=== PATIENT | female | born 1965 | race Caucasian/White ===

== ENCOUNTER 2017-03-02 09:07 | Emergency (ER) | payer BC ==
[2017-03-02] MEDS ORDERED: ACETAMINOPHEN 325 MG TABLET PO ONE (11:33)
[2017-03-02] MEDS ORDERED: oxyCODONE HCL/ACETAMINOPHEN 1 TAB TABLET PO ONE (11:33)
[2017-03-02] MEDS ORDERED: ACETAMINOPHEN 325 MG TABLET ONE (11:37)
[2017-03-02] MEDS ORDERED: oxyCODONE HCL/ACETAMINOPHEN 1 TAB TABLET ONE (11:37)
--- NOTE | 2017-03-02 11:39 | ERNOTE ---
Upper Extremity HPI - Narrative Date of Service: 03/02/17 - General Extremities Pain Location: forearm: right Time Seen by Provider: 03/02/17 11:19 Source: patient, RN notes reviewed Exam Limitations: no limitations - Immun/Allergies/Home Medications Immunizations: IMMUNIZATION HX Immunizations Up to Date Yes History of Influenza Vaccine Yes Hx Pneumococcal Vaccination Yes Allergies/Adverse Reactions: Allergies Allergy/AdvReac Type Severity Reaction Status Date / Time exenatide [From Byetta] Allergy Severe Verified 03/02/17 09:34 metformin Allergy Severe Verified 03/02/17 09:34 pioglitazone HCl [From Actos] Allergy Mild Other Verified 03/02/17 09:34 Penicillins Allergy Verified 03/02/17 09:34 ORAL Allergy Uncoded 03/02/17 09:34 Home Medications: HOME MEDICATIONS FLUoxetine HCL [Prozac] 40 mg PO DAILY 04/19/12 [Last Taken Unknown] Lisdexamfetamine Dimesylate [Vyvanse] 70 mg PO DAILY 04/19/12 [Last Taken Unknown] [place]-3/Dha/Epa/Fish Oil [Fish Oil] 500 mg PO DAILY 04/19/12 [Last Taken Unknown ] Omeprazole 40 mg PO DAILY 04/19/12 [Last Taken Unknown] Pnv95/Iron Fum/Folic Acid [ Tablet] 1 each PO DAILY 04/19/12 [Last Taken Unknown] Ascorbic Acid [Vitamin C] 250 mg PO DAILY 06/28/12 [Last Taken Unknown] Zolpidem Tartrate [ZOLPIDEM (Ambien)] 10 mg PO HS PRN 11/08/13 [Last Taken Unknown] Vitamin B Complex [B Complex] 1 each PO DAILY 09/25/14 [Last Taken Unknown] Cholecalciferol (Vitamin D3) [Vitamin D] 400 unit PO DAILY 08/05/15 [Last Taken Unknown] predniSONE [Prednisone] 3 tab PO DAILY #9 tab 08/05/15 [Last Taken Unknown] oxyCODONE HCL/ACETAMINOPHEN [Percocet 5 MG/325 MG] 1 tab PO Q4H PRN #20 tab 12/10 [Last Taken Unknown] - Pain Score Pain Score #1 Pain Score: 10 - History of Present Illness Narrative: 52 year old female ambulatory to the ED for an injury to her right arm that occurred at home this morning. She fell and struck the right forearm. She is having pain in the proximal radius region. Date (Duration): 03/02/17 Occurred: this morning Location of Incident: home Method of Injury: Reports: fell Reason for Fall: Reports: tripped Loss of Consciousness: Reports: no loss of consciousness Modifying Factors - (Improves): Reports: immobilization Modifying Factors - (Worsens): Reports: movement Associated Symptoms: Reports: tingling. Denies: weakness, numbness distally, loss of feeling Other Injuries: Reports: none Review of Systems - Review of Systems Constitutional: Present: no symptoms reported EYE: Present: no symptoms reported ENT: Present: no symptoms reported Respiratory: Present: no symptoms reported Cardiology: Present: no symptoms reported Gastrointestinal/Abdominal: Present: no symptoms reported Genitourinary: Present: no symptoms reported Musculoskeletal: Present: muscle pain. Absent: joint pain, joint swelling Skin: Absent: lesions, lumps, change in color Neurological: Present: tingling. Absent: weakness, numbness Endocrine: Present: no symptoms reported Hematologic/Lymphatic: Present: no symptoms reported Psych: Present: no symptoms reported - Patient's Past Medical History Patient History - Medical: Diabetes Type 2 Patient History - Cardiac/Respiratory: No pertinent hx Patient History - Cancer: No Hx of Cancer Patient History - Surgical Procedures: Appendectomy, Cholecystectomy, Gastric Bypass, T & A, Other, Hernia Repair Patient History - Other: None LMP (females 10-50): Menopausal - Family History Mother Family History - Medical: Alzheimer's Disease, Diabetes Type 2, Hypothyroidism Family History - Cardiac/Respiratory: Hypertension Father Family History - Medical: - Social History Living Situations: home Abuse History: No History of abuse Psych History: No pertinent hx Smoking Status: Current every day smoker Have you smoked in the past 12 months: Yes Do you dip or chew tobacco: No - Immunizations Immunizations Up to Date: Yes Hx Pneumococcal Vaccination: Yes History of Influenza Vaccine: Yes Physical Exam - Physical Exam General Appearance: Present: wd/wn, alert, no apparent distress Head Exam: Present: normal inspection, no evidence of injury Respiratory: Present: no respiratory distress, normal breath sounds, no accessory muscle use, lungs clear Cardiovascular/Chest: Present: regular rate, rhythm, no murmur, normal peripheral pulses Peripheral Pulses: N=norm/S=strong/W=weak/B=bound/A=absent: Radial (R): Strong, Radial (L): Strong Extremity Exam: Present: decreased range of motion - Right elbow and wrist, bony tenderness - Right proximal radius. Absent: joint swelling, extremity edema Neurological Exam: Present: alert, oriented, no motor/sensory deficits, other - dysphoric. Absent: normal mood/affect Skin Exam: Present: normal color, warm/dry ED Progress - Vital Signs Patient's Vital Signs:: I have reviewed the patient's vital signs. Vital Signs: Vital Signs 03/02/17 09:29 Temperature 36.9 C Pulse Rate 78 Respiratory 14 Rate Blood Pressure 127/73 O2 Sat by Pulse 100 Oximetry - X-Ray X-Ray #1 X-Ray: forearm - Right Interpretation: Interp. by me X-ray Comments: Mildly displaced proximal radius fracture X-Ray #2 X-Ray: elbow - Right Interpretation: Interp. by me X-ray Comments: Mildly displaced proximal radius fracture - Progress/Reassessment Chief Complaint: Upper Extremity Injury/Problem Progress:: Improved Procedures Pre-Proc Neuro Vasc Exam: normal Hand-Made Type: ocl Splint: sugar-tong Alignment good: Yes Splint applied by: Nurse Post-Proc Neuro Vasc Exam: normal Complications: Pt soren procedure well Departure Clinical Impression: Fracture of proximal end of radius Qualifiers: Encounter type: initial encounter Fracture type: closed Fracture morphology: unspecified fracture morphology Laterality: right Qualified Code(s): S52.101A - Unspecified fracture of upper end of right radius, initial encounter for closed fracture - Departure Disposition: Home Follow Up Needed Condition: Stable Instructions: Radial Fracture, Form - Excuse from Work, School, or Physical Activity Additional Instructions: Ice and elevate Leave splint in place until seen by orthopedics OK to take Tylenol for mild pain if you are not taking Percocet Contact orthopedics on Saturday to arrange follow-up Referrals: Artemio Cardoza, PAC [[facility]] - Prescriptions: oxyCODONE HCL/ACETAMINOPHEN [Percocet 5 MG/325 MG] 1 tab PO Q4H PRN #20 tab PRN Reason: Pain
[2017-03-02 11:52] VITALS: BP 135/70
== END 2017-03-02 12:14 | disposition home or self-care (01) ==
LOC: ER 09:07
PROC: 2W3CX1Z Immobilization of Right Lower Arm using Splint (ICD-10-PCS; principal; 2017-03-02)
DX: S52.101A Unspecified fracture of upper end of right radius, initial encounter for closed fracture (principal); W01.10XA Fall on same level from slipping, tripping and stumbling with subsequent striking against unspecified object, initial encounter; Y93.9 Activity, unspecified; Y92.009 Unspecified place in unspecified non-institutional (private) residence as the place of occurrence of the external cause; F17.200 Nicotine dependence, unspecified, uncomplicated

== ENCOUNTER 2017-06-27 20:05 | Emergency (ER) | payer BC ==
--- NOTE | 2017-06-27 20:54 | ERNOTE ---
Integumentary HPI - Narrative Date of Service: 06/27/17 - General Presenting Symptoms: other - lump and pain LLE Time Seen by Provider: 06/27/17 20:37 Source: patient Exam Limitations: no limitations - Immun/Allergies/Home Medications Immunizations: IMMUNIZATION HX Immunizations Up to Date Yes History of Influenza Vaccine Yes Hx Pneumococcal Vaccination No Allergies/Adverse Reactions: Allergies Allergy/AdvReac Type Severity Reaction Status Date / Time exenatide [From Byetta] Allergy Severe Verified 06/27/17 20:22 metformin Allergy Severe Verified 06/27/17 20:22 pioglitazone HCl [From Actos] Allergy Mild Other Verified 06/27/17 20:22 Penicillins Allergy Verified 06/27/17 20:22 ORAL Allergy Uncoded 06/27/17 20:22 Home Medications: HOME MEDICATIONS FLUoxetine HCL [Prozac] 40 mg PO DAILY 04/19/12 [Last Taken Unknown] Lisdexamfetamine Dimesylate [Vyvanse] 70 mg PO DAILY 04/19/12 [Last Taken Unknown] [place]-3/Dha/Epa/Fish Oil [Fish Oil] 500 mg PO DAILY 04/19/12 [Last Taken Unknown ] Omeprazole 40 mg PO DAILY 04/19/12 [Last Taken Unknown] Pnv95/Iron Fum/Folic Acid [ Tablet] 1 each PO DAILY 04/19/12 [Last Taken Unknown] Ascorbic Acid [Vitamin C] 250 mg PO DAILY 06/28/12 [Last Taken Unknown] Zolpidem Tartrate [ZOLPIDEM (Ambien)] 10 mg PO HS PRN 11/08/13 [Last Taken Unknown] Vitamin B Complex [B Complex] 1 each PO DAILY 09/25/14 [Last Taken Unknown] - History of Present Illness Narrative: Pt. comes in with c/o RLE pain and a lump for 24 hours. Pt. 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 Pt. denies any fever, SOB, CP, numbness or tingling. Location: Reports: lower extremity Quality: Reports: painful Severity: moderate Exposure: Reports: no cause identified Modifying Factors - (Improves): Reports: nothing Modifying Factors - (Worsens): Reports: other - flexion of R foot Associated Symptoms: Reports: swelling/mass/lumps Prior Treatment: Reports: recently seen, currently on antibiotics Review of Systems - Review of Systems Constitutional: Present: no symptoms reported. Absent: fever, chills, weakness , fatigue, malaise EYE: Present: no symptoms reported ENT: Present: no symptoms reported Respiratory: Present: no symptoms reported. Absent: shortness of breath, cough , wheezing Cardiology: Present: no symptoms reported. Absent: chest pain, palpitations, edema Gastrointestinal/Abdominal: Present: no symptoms reported. Absent: nausea, vomiting, diarrhea Genitourinary: Present: no symptoms reported. Absent: frequency, decreased urinary output Musculoskeletal: Present: muscle pain, joint swelling - scales Skin: Present: lumps - R anterior lower leg Neurological: Present: no symptoms reported. Absent: headache, dizziness/light- headedness, numbness, tingling Hematologic/Lymphatic: Present: no symptoms reported. Absent: easy bruising, easy bleeding All Other Systems: All systems neg except as marked - Patient's Past Medical History Patient History - Medical: Diabetes Type 2 Patient History - Cardiac/Respiratory: Hyperlipidemia Patient History - Cancer: No Hx of Cancer Patient History - Surgical Procedures: Appendectomy, Cholecystectomy, Gastric Bypass, T & A, Other, Hernia Repair Patient History - Other: None - Family History Mother Family History - Medical: Alzheimer's Disease, Diabetes Type 2, Hypothyroidism Family History - Cardiac/Respiratory: Hypertension Father Family History - Medical: - Social History Living Situations: spouse Abuse History: No History of abuse Psych History: No pertinent hx Smoking Status: Current every day smoker Have you smoked in the past 12 months: Yes Do you dip or chew tobacco: No Alcohol Use: rarely Drug Use: none - Immunizations Immunizations Up to Date: Yes Hx Pneumococcal Vaccination: No History of Influenza Vaccine: Yes Physical Exam - Physical Exam General Appearance: Present: wd/wn, alert, no apparent distress Head Exam: Present: normal inspection, no evidence of injury Eye Exam: Normal inspection: bilateral Respiratory: Present: no respiratory distress, normal breath sounds, no accessory muscle use, chest nontender, lungs clear Cardiovascular/Chest: Present: regular rate, rhythm, no murmur, normal peripheral pulses Back Exam: Present: normal inspection Extremity Exam: Present: calf tenderness, other - R anteriolateral lower leg Neurological Exam: Present: alert, oriented, normal mood/affect, no motor/ sensory deficits Skin Exam: Present: warm/dry, other - redness RLE anterior scales ED Progress - Date and Time Seen: Date and Time: 06/27/17 22:[address] Camacho and she recommends pt. to get CT scan of chest as D Dimer is elevated. - Results and Orders Patient's Lab Results:: I have reviewed the patient's lab results. - Vital Signs Patient's Vital Signs:: I have reviewed the patient's vital signs. Vital Signs: Vital Signs 06/27/17 20:15 Temperature 36.7 C Pulse Rate 70 Respiratory 14 Rate Blood Pressure 137/67 O2 Sat by Pulse 96 Oximetry - Progress/Reassessment Chief Complaint: Cellulitis Progress:: Unchanged - Transfer of Care Physician Sign Out: Liat Edwards Receiving Physician: Argenis Camacho Pending Results: CT/MRI results Expected Disposition: Discharge Departure Clinical Impression: Pain and swelling of right lower extremity - Departure Disposition: Home self-care Condition: Good
[2017-06-27 20:59] LABS: Hematocrit 43.2 % (37.0-47.0); Hemoglobin 14.5 gm/dL (12.5-16.0); Mean Cell Volume 93.1 fl (78-100); Mean Corpuscular Hemoglobin 31.3 pg (27-31); Mean Corpuscular Hgb Conc 33.6 g/dl (32-36); Mean Platelet Volume 9.6 fl (6.0-9.5); Neutrophil # 5.8 K/mm3 (1.3-6.0); Neutrophil % 48.2 % (42-75.0); Platelet Count 306 K/mm3 (150-450); Red Blood Count 4.64 M/mm3 (4.2-5.4); Red Cell Distribution Width 12.3 % (11.5-14.0)
[2017-06-27 21:44] LABS: Albumin * 3.3 gm/dl (3.4-5.0); Anion Gap 7.8 mmol/L (6.8-13.8); BUN/Creatinine Ratio 14.1 (9.0-21.6); Bilirubin, Total 0.3 mg/dL (0.0-1.1); Ca. Corrected For Albumin 8.5 mg/dL (8.4-10.2); Calcium * 8.3 mg/dL (7.9-10.9); Carbon Dioxide 32.3 mmol/L (24-32.6); Potassium 4.1 mmol/L (3.4-4.6); Total Protein 7.1 gm/dL (6.2-8.2)
--- NOTE | 2017-06-27 23:48 | ERNOTE ---
Integumentary HPI - General Time Seen by Provider: 06/27/17 20:37 - Immun/Allergies/Home Medications Immunizations: IMMUNIZATION HX Immunizations Up to Date Yes History of Influenza Vaccine Yes Hx Pneumococcal Vaccination No Allergies/Adverse Reactions: Allergies Allergy/AdvReac Type Severity Reaction Status Date / Time exenatide [From Byetta] Allergy Severe Verified 06/27/17 20:22 metformin Allergy Severe Verified 06/27/17 20:22 pioglitazone HCl [From Actos] Allergy Mild Other Verified 06/27/17 20:22 Penicillins Allergy Verified 06/27/17 20:22 ORAL Allergy Uncoded 06/27/17 20:22 Home Medications: HOME MEDICATIONS FLUoxetine HCL [Prozac] 40 mg PO DAILY 04/19/12 [Last Taken Unknown] Lisdexamfetamine Dimesylate [Vyvanse] 70 mg PO DAILY 04/19/12 [Last Taken Unknown] [place]-3/Dha/Epa/Fish Oil [Fish Oil] 500 mg PO DAILY 04/19/12 [Last Taken Unknown ] Omeprazole 40 mg PO DAILY 04/19/12 [Last Taken Unknown] Pnv95/Iron Fum/Folic Acid [ Tablet] 1 each PO DAILY 04/19/12 [Last Taken Unknown] Ascorbic Acid [Vitamin C] 250 mg PO DAILY 06/28/12 [Last Taken Unknown] Zolpidem Tartrate [ZOLPIDEM (Ambien)] 10 mg PO HS PRN 11/08/13 [Last Taken Unknown] Vitamin B Complex [B Complex] 1 each PO DAILY 09/25/14 [Last Taken Unknown] Clindamycin HCl [Cleocin] 300 mg PO Q6H #40 capsule 06/27/17 [Last Taken Unknown ] - History of Present Illness Narrative: Care assumed from Liat Edwards, waiting on CTA chest results. Patient doing okay, has minor erythema to anterior right lower extremity with exquisite tenderness to palpation. - Patient's Past Medical History Patient History - Medical: Diabetes Type 2 Patient History - Cardiac/Respiratory: Hyperlipidemia Patient History - Cancer: No Hx of Cancer Patient History - Surgical Procedures: Appendectomy, Cholecystectomy, Gastric Bypass, T & A, Other, Hernia Repair Patient History - Other: None - Family History Mother Family History - Medical: Alzheimer's Disease, Diabetes Type 2, Hypothyroidism Family History - Cardiac/Respiratory: Hypertension Father Family History - Medical: - Social History Living Situations: spouse Abuse History: No History of abuse Psych History: No pertinent hx Smoking Status: Current every day smoker Have you smoked in the past 12 months: Yes Do you dip or chew tobacco: No Alcohol Use: rarely Drug Use: none - Immunizations Immunizations Up to Date: Yes Hx Pneumococcal Vaccination: No History of Influenza Vaccine: Yes ED Progress - Results and Orders Patient's Lab Results:: I have reviewed the patient's lab results. Results and Orders: Laboratory Last Values WBC 12.0 K/mm3 (4.0-10.5) H 06/27/17 20:59 RBC 4.64 M/mm3 (4.2-5.4) 06/27/17 20:59 Hgb 14.5 gm/dL (12.5-16.0) 06/27/17 20:59 Hct 43.2 % (37.0-47.0) 06/27/17 20:59 MCV 93.1 fl (78-100) 06/27/17 20:59 MCH 31.3 pg (27-31) H 06/27/17 20:59 MCHC 33.6 g/dl (32-36) 06/27/17 20:59 RDW 12.3 % (11.5-14.0) 06/27/17 20:59 Plt Count 306 K/mm3 (150-450) 06/27/17 20:59 MPV 9.6 fl (6.0-9.5) H 06/27/17 20:59 Immature Gran % (Auto) 0.50 % (0.001-0.429) H 06/27/17 20:59 Immature Gran # (Auto) 0.06 K/mm3 (0.000-0.0310) H 06/27/17 20:59 Neutrophils % 48.2 % (42-75.0) 06/27/17 20:59 Lymphocytes % 40.8 % (20-51) 06/27/17 20:59 Monocytes % 6.3 % (0.0-9) 06/27/17 20:59 Eosinophils % 3.3 % (0.0-3.0) H 06/27/17 20:59 Basophils % 0.9 % (0.0-1.0) 06/27/17 20:59 Nucleated RBC % 0.0 k/mm3 (0-1) 06/27/17 20:59 Neutrophils # 5.8 K/mm3 (1.3-6.0) 06/27/17 20:59 Lymphocytes # 4.9 k/mm3 (1.5-3.5) H 06/27/17 20:59 Monocytes # 0.8 k/mm3 (0.0-1.0) 06/27/17 20:59 Eosinophils # 0.4 k/mm3 (0.0-0.7) 06/27/17 20:59 Absolute Basophils 0.1 k/mm3 (0.0-0.1) 06/27/17 20:59 D-Dimer 1.16 mg/L (0.19-0.49) H 06/27/17 20:59 Sodium 140 mmol/L (132-142) 06/27/17 20:59 Plasma Sodium 140 mmol/L (130-142) 06/27/17 20:59 Potassium 4.1 mmol/L (3.4-4.6) 06/27/17 20:59 Chloride 104 mmol/L (97-106) 06/27/17 20:59 Carbon Dioxide 32.3 mmol/L (24-32.6) 06/27/17 20:59 Anion Gap 7.8 mmol/L (6.8-13.8) 06/27/17 20:59 BUN 12 mg/dL (3-23) 06/27/17 20:59 Creatinine 0.85 mg/dL (0.4-1.4) 06/27/17 20:59 Est GFR (Non-Af Amer) 74 mL/min (60-130) 06/27/17 20:59 BUN/Creatinine Ratio 14.1 (9.0-21.6) 06/27/17 20:59 Random Glucose 101 mg/dL (70-110) 06/27/17 20:59 Calcium 8.3 mg/dL (7.9-10.9) 06/27/17 20:59 Calcium Adj for Albumin 8.5 mg/dL (8.4-10.2) 06/27/17 20:59 Total Bilirubin 0.3 mg/dL (0.0-1.1) 06/27/17 20:59 AST 22 U/L (0-48) 06/27/17 20:59 ALT 37 U/L (19-67) 06/27/17 20:59 Alkaline Phosphatase 121 U/L (50-170) 06/27/17 20:59 Total Protein 7.1 gm/dL (6.2-8.2) 06/27/17 20:59 Albumin 3.3 gm/dl (3.4-5.0) L 06/27/17 20:59 - Vital Signs Patient's Vital Signs:: I have reviewed the patient's vital signs. Vital Signs: Vital Signs 06/27/17 06/27/17 06/27/17 20:15 20:45 21:30 Temperature 36.7 C 36.7 C Pulse Rate 70 66 67 Respiratory 14 14 Rate Blood Pressure 137/67 121/70 125/72 O2 Sat by Pulse 96 95 94 Oximetry 06/27/17 06/27/17 06/27/17 22:15 22:45 23:20 Temperature 36.7 C 36.7 C Pulse Rate 67 78 74 Respiratory 14 14 14 Rate Blood Pressure 130/68 136/76 125/77 O2 Sat by Pulse 94 95 95 Oximetry - CT/Ultrasound CT/Ultrasound Narrative: Ultrasound Right Lower Extremity No evidence of deep venous thrombosis Soft tissue edema Sai Alaniz MD CTA Chest No evidence of pulmonary embolism Negative for pericardial or pleural effusion No consolidation/infiltrate Sai Alaniz MD - Progress/Reassessment Chief Complaint: Cellulitis Progress:: Unchanged Progress Note-Subjective: 06/28/17 01:37 I discussed the antibiotic choices with the patient, she is already on Cefdinir and this showed up. She states she responds real well with Clindamycin after I suggested that. She will stop the Cefdinir and go forward with Clindamycin starting this morning. Patient also given a work note. The patient did note that her father had problems with lower extremity cellulitis most of his later life. - Transfer of Care Physician Sign Out: Liat Edwards - waiting on CT results Brief History: Patient with pain and redness to right lower extremity, had a positive Sima's sign, positive D-dimer. Ultrasound of lower extremity was negative, waiting for CTA chest results. Pending Results: CT/MRI results Departure Clinical Impression: Pain and swelling of right lower extremity, Cellulitis of right anterior lower leg - Departure Disposition: Home self-care Condition: Good Instructions: Cellulitis, Adult, [id number] Additional Instructions: Please follow up with your primary care provider in 5-7 days, sooner if no improvement. Stop the Cefdinir and start the Clindamycin. Prescriptions: Clindamycin HCl [Cleocin] 300 mg PO Q6H #40 capsule
[2017-06-27 23:52] VITALS: BP 134/74
== END 2017-06-27 23:51 | disposition home or self-care (01) ==
LOC: ER 20:05
DX: L03.115 Cellulitis of right lower limb (principal); M79.661 Pain in right lower leg; R60.0 Localized edema; F17.200 Nicotine dependence, unspecified, uncomplicated